=== PATIENT | female | born 1985 | race African-American/Black ===

== ENCOUNTER 2018-01-10 05:37 | Emergency (ER) | payer MEDICAID ==
[~2018-01-10] VITALS: Ht 172.7 cm; Wt 60.8 kg
[2018-01-10 05:50] VITALS: Ht 172.7 cm; Wt 60.8 kg
[2018-01-10 08:02] VITALS: BP 109/55
== END 2018-01-10 08:02 | disposition home or self-care (01) ==
LOC: ED 05:37
DX: L02.411 Cutaneous abscess of right axilla (principal)
CPT/HCPCS: J2001

== ENCOUNTER 2018-01-12 10:28 | Emergency (ER) | payer OTHER ==
[~2018-01-12] VITALS: Ht 172.7 cm; Wt 60.8 kg
[2018-01-12 10:41] VITALS: Ht 172.7 cm; Wt 60.8 kg
[2018-01-12 11:49] VITALS: BP 106/55
== END 2018-01-12 11:49 | disposition home or self-care (01) ==
LOC: ED 10:28
DX: Z48.01 Encounter for change or removal of surgical wound dressing (principal)